=== PATIENT | female | born 1935 | race Caucasian/White ===

== ENCOUNTER 2016-05-27 19:31 | Emergency (ER) | payer OTHER ==
[~2016-05-27 19:31] MED LIST: ADVAIR 2501 DISK W/D PO; ALBUTEROL0.83 MG/ML IH; ASPIRIN PO; ASPIRIN81 M1 PO; BENADRYL PO; CAPTOPRIL PO; CAPTOPRIL25 MG PO; CHOLESTEROL MED; CORDARONE200 M1 PO; COUMADIN2.5 MG PO; DIAZEPAM PO; FISH OIL 1,0001 CA2 PO; GLUCOVANCE 5/501 TA1 PO; GLYBURIDE-METFO1 TA3 PO; HCTZ PO; HYDROCHLOROTHIA25 MG PO; HYDROCODONE-APA1 T42 PO; LEVAQUIN PO; LOPID600 MG PO; MEDI-MECLIZINE25 M1 PO; MEVACOR PO; MEVACOR40 MG PO; MONISTAT 7100 MG/SUP VG; NICOTINE T1 PATCH .2 TOP; PAIN MED; PAXIL10 MG PO; SYNTHROID75 MCG PO; TEMOVATE30 GM TOP; THEOPHYLLIN PO; VICODIN 5/500 T1 TAB PO; [UNRECOGNIZED DRUG - OTHER]; [UNRECOGNIZED DRUG - REMARK]; [UNRECOGNIZED DRUG - REMARK]
== END 2016-05-27 19:50 | disposition home or self-care (01) ==
LOC: CED 19:31
DX: H11.31 Conjunctival hemorrhage, right eye (principal)
CPT/HCPCS: 99283

== ENCOUNTER 2016-07-01 16:58 | Emergency (ER) | payer OTHER ==
--- NOTE | ~2016-07-01 | US85 ---
[facility] A Service of [facility] RADIOLOGY TEXT RESULTS PATIENT: SOMMER MANCINI LOCATION: [place] : 37 UNIT #: [id number] AGE: [address]: Aiyana Lambert MD SEX: F ORDER DR: [id number] [facility] [address] [place], [place] [address] [id number] MR#: [id number] Acc #: [id number] NAME: SOMMER MANCINI : 1935 SEX: F STUDY DATE/TIME: 07/01/2016 17:54 UNIT: [facility] ROOM: STUDY DESCRIPTION: [facility] [employer] [facility] Attending Physician: Aiyana Lambert M.D. Ordering Physician: Aiyana Lambert M.D. Primary Care Physician: [facility] MEDICAL IMAGING REPORT This report is preliminary unless electronic signature is present EXAM Venous Doppler ultrasound, right leg, 07/01/2016 HISTORY 81-year-old female in the ED complaining of 2-week history of right lower extremity pain, redness and swelling. TECHNIQUE Venous ultrasound examination of the right lower extremity was performed using grayscale, spectral Doppler and color flow Doppler imaging. FINDINGS The examination is negative. There is no evidence of right lower extremity deep venous thrombus from the groin to the lower calf. Visualized greater saphenous vein is also patent. IMPRESSION Negative examination. No evidence of right lower extremity deep venous thrombosis. Dictated by... Jose C Espinoza M.D. THIS IS AN ELECTRONICALLY VERIFIED REPORT Jose C Espinoza M.D. at 07/04/2016 5:58 AM PHONG/khushi TD: 07/02/2016 10:45 JOB #: [id number] MEDICAL IMAGING REPORT [facility] A Service of [facility] RADIOLOGY TEXT RESULTS PATIENT: SOMMER MANCINI LOCATION: [place] : 37 UNIT #: [id number] AGE: [address]: Aiyana Lambert MD SEX: F ORDER DR: Page 1 of 1 COPY
[2016-07-01 17:15] LABS: BASOPHIL% 0.7 % (0-2.5); EOSINOPHIL# 0.2 X10e3 (0-0.7); EOSINOPHIL% 3.1 % (0.0-7.0); HEMATOCRIT 29.7 % (35.0-45.0); HEMOGLOBIN 9.7 gm/dL (12.0-16.0); LYMPHOCYTE# 1.8 X10e3 (1.0-3.5); LYMPHOCYTE% 27.7 % (17.0-45.0); MEAN CELL VOLUME 88.4 FL (83-96); MEAN CORPUSCULAR HEMOGLOBIN 28.8 PG (28-34); MEAN CORPUSCULAR HGB CONC 32.6 g/dL (30-36); MEAN PLATELET VOLUME 8.2 FL (6.5-11.5); MONOCYTE# 0.4 X10e3 (0-1.0); MONOCYTE% 6.3 % (3.0-12.0); NEUTROPHIL% 62.2 % (40-75); PLATELET COUNT 140 X10e3 (140-420); RED BLOOD COUNT 3.36 X10e (3.90-5.30); RED CELL DISTRIBUTION WIDTH 15.4 % (11.0-15.5); WHITE BLOOD COUNT 6.4 X10e3 (4.0-10.5)
[2016-07-01 17:22] LABS: DIFF IND NO
[2016-07-01 17:27] LABS: PROTHROMBIN TIME (PATIENT) 10.2 SECONDS (9.6-11.5)
[2016-07-01 17:38] LABS: BUN/CREATININE RATIO 24.16; CALCIUM SERUM 8.3 mg/dL (8.4-10.2); CREATININE SERUM 1.2 mg/dL (0.6-1.4); GLOM FILT RATE Estimated 42.7 mL/min (>60); POTASSIUM 4.1 mmol/L (3.5-5.1)
== END 2016-07-01 19:25 | disposition home or self-care (01) ==
LOC: CED 16:58
PROVIDERS: Student in an Organized Health Care Education/Training Program
DX: L03.115 Cellulitis of right lower limb (principal); E11.40 Type 2 diabetes mellitus with diabetic neuropathy, unspecified; M54.9 Dorsalgia, unspecified; Z86.73 Personal history of transient ischemic attack (TIA), and cerebral infarction without residual deficits; Z79.82 Long term (current) use of aspirin
CPT/HCPCS: 36415; 80048; 85025; 85610; 85730; 93971; 99284

== ENCOUNTER 2016-07-13 16:48 | Emergency (ER) | payer OTHER ==
[2016-07-13 17:12] LABS: BASOPHIL% 0.6 % (0-2.5); EOSINOPHIL# 0.1 X10e3 (0-0.7); EOSINOPHIL% 1.4 % (0.0-7.0); HEMATOCRIT 25.9 % (35.0-45.0); HEMOGLOBIN 8.7 gm/dL (12.0-16.0); LYMPHOCYTE# 1.3 X10e3 (1.0-3.5); LYMPHOCYTE% 21.7 % (17.0-45.0); MEAN CELL VOLUME 87.3 FL (83-96); MEAN CORPUSCULAR HEMOGLOBIN 29.3 PG (28-34); MEAN CORPUSCULAR HGB CONC 33.5 g/dL (30-36); MEAN PLATELET VOLUME 8.1 FL (6.5-11.5); MONOCYTE# 0.5 X10e3 (0-1.0); NEUTROPHIL# 3.9 X10e3 (1.5-7.1); NEUTROPHIL% 68.3 % (40-75); PLATELET COUNT 126 X10e3 (140-420); RED BLOOD COUNT 2.97 X10e (3.90-5.30); RED CELL DISTRIBUTION WIDTH 15.4 % (11.0-15.5); WHITE BLOOD COUNT 5.8 X10e3 (4.0-10.5)
[2016-07-13 17:15] LABS: DIFF IND NO
[2016-07-13 17:31] LABS: URINE SOURCE CLEAN CATCH
[2016-07-13 17:35] LABS: ALBUMIN SERUM 3.7 g/dL (3.5-5.0); ALKALINE PHOSPHATASE 53 U/L (32-92); ALT (SGPT) 20 U/L (10-40); AST (SGOT) 22 U/L (10-42); BILIRUBIN,TOTAL 0.8 mg/dL (0.2-2.0); BLOOD UREA NITROGEN 35 mg/dL (9-23); BUN/CREATININE RATIO 26.92; CALCIUM SERUM 7.9 mg/dL (8.4-10.2); CARBON DIOXIDE 21 mmol/L (22-31); CHLORIDE 111 mmol/L (100-111); CREATININE SERUM 1.3 mg/dL (0.6-1.4); GLOM FILT RATE Estimated 38.7 mL/min (>60); GLUCOSE FASTING 238 mg/dL (70-110); POTASSIUM 4.3 mmol/L (3.5-5.1); PROTEIN TOTAL SERUM 6.5 g/dL (6.0-8.3); SODIUM 139 mmol/L (135-145)
[2016-07-13 17:35] LABS: URINE APPEARANCE CLEAR; URINE BILIRUBIN NEG (NEG); URINE BLOOD NEG (NEG); URINE COLOR YELLOW; URINE GLUCOSE 100 MG/DL (NEG); URINE KETONE NEG (NEG); URINE LEUKOCYTE ESTERASE TRACE (NEG); URINE NITRATE NEG (NEG); URINE PROTEIN 2+ (NEG)
[2016-07-13 17:37] LABS: BILIRUBIN, DIRECT <0.1 mg/dL (0.0-0.2); BILIRUBIN,INDIRECT 0.7 mg/dL (0.0-0.9)
[2016-07-13 17:38] LABS: CULTURE INDICATED? YES; U HYALINE CASTS AUWI 0-2 /[LPF]; URBCS1 AUWI 0-2 /[HPF] (0-2); URINE BACTERIA AUWI NEG (NEGATIVE); URINE SQUAMOUS EPITHELIAL CELL NONE SEEN /[HPF]
== END 2016-07-13 18:36 | disposition home or self-care (01) ==
LOC: CED 16:48
PROVIDERS: Emergency Medicine
DX: I12.9 Hypertensive chronic kidney disease with stage 1 through stage 4 chronic kidney disease, or unspecified chronic kidney disease (principal); N18.9 Chronic kidney disease, unspecified; D63.1 Anemia in chronic kidney disease; R60.0 Localized edema; Z90.710 Acquired absence of both cervix and uterus; Z86.73 Personal history of transient ischemic attack (TIA), and cerebral infarction without residual deficits; Z88.8 Allergy status to other drugs, medicaments and biological substances
CPT/HCPCS: 36415; 80048; 80076; 81003; 85025; 87086; 99283